=== PATIENT | male | born 1985 | race Caucasian/White ===

== ENCOUNTER 2017-05-05 22:00 | Emergency (ER) | payer OTHER ==
[2017-05-05 22:20] VITALS: BP 106/65; PULSE 60; RESP 16; TEMP 98.4; O2SAT 96
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
== END 2017-05-06 00:05 | disposition home or self-care (01) ==
PROC: 0HQ0XZZ Repair Scalp Skin, External Approach (ICD-10-PCS; principal; 2017-05-05)
DX: S01.01XA Laceration without foreign body of scalp, initial encounter (principal); S06.0X0A Concussion without loss of consciousness, initial encounter; W22.8XXA Striking against or struck by other objects, initial encounter